=== PATIENT | male | born 1940 | race African-American/Black ===

== ENCOUNTER 2018-11-21 15:31 | Inpatient (IN) ==
[2018-11-21] MEDS ORDERED: FUROSEMIDE 40 MG/4 ML VIAL IV STA (16:23)
[2018-11-21 16:39] LABS: Basophils # 0.1 10*3/uL (0.0-0.2); Basophils % 0.9 % (0.0-0.8); Eosinophils % 0.5 % (0.00-10.9); Hematocrit 44.6 VOL% (42.0-52.0); Hemoglobin 14.9 GM/DL (14.0-18.0); Immature Granulocytes % 0.3 %; Immature Granulocytes Absolute 0.02 #; Lymphocytes # 1.2 10*3/uL (1.4-4.0); Lymphocytes % 16.3 % (21.2-54.2); Mean Corpuscular HGB Conc 33.4 GM/DL (32-36); Mean Corpuscular Hemoglobin 29 PG (27-34); Mean Corpuscular Volume 87.6 FL (87-102); Mean Platelet Volume 10.9 FL (9.6-12.0); Monocytes # 0.7 10*3/uL (0.11-0.8); Monocytes % 9.4 % (1.7-12.7); Neutrophils # 5.5 10*3/uL (1.4-7.4); Neutrophils % 72.6 % (38.7-73.9); Platelet Count 172 T/CUMM (130-400); Red Blood Count 5.09 MC/CUMM (3.8-5.5); White Blood Count 7.6 T/CUMM (4-12)
[2018-11-21 19:36] LABS: Albumin 3.9 G/DL (3.4-5.0); Bilirubin,Total 3.8 MG/DL (0.2-1.0); Osmolality,Calculated 279.3 MOS/KG (273-304); Potassium 3.5 MMOL/L (3.5-5.1); Total Protein 7.7 G/DL (6.4-8.3)
[2018-11-21] MEDS ORDERED: ACETAMINOPHEN 500 MG TABLET PO PRN (20:12)
[2018-11-21] MEDS ORDERED: ONDANSETRON 4 MG TABLET PO PRN (20:12)
[2018-11-21] MEDS: GABAPENTIN 300 MG CAPSULE PO SCH (21:48)
[2018-11-21] MEDS: TAMSULOSIN 0.4 MG CAPSULE PO SCH (21:48)
[2018-11-21] MEDS: amLODIPine 5 MG TABLET PO SCH (21:48)
[2018-11-21] MEDS: POTASSIUM CHLORIDE 20 MEQ TABLET PO SCH (21:48)
[2018-11-21] MEDS ORDERED: ONDANSETRON 4 MG/2 ML VIAL IV PRN (22:12)
[2018-11-21] MEDS ORDERED: ZALEPLON 5 MG CAPSULE PO PRN (22:12)
[2018-11-21] MEDS: METOPROLOL SUCCINATE XL 25 MG TABLET PO SCH (23:22)
[2018-11-21] MEDS: FUROSEMIDE 40 MG/4 ML VIAL IV SCH (23:22)
[2018-11-22] MEDS: POTASSIUM CHLORIDE 20 MEQ TABLET PO SCH ×3 (01:28→12:29)
[2018-11-22 05:42] LABS: Basophils # 0.1 10*3/uL (0.0-0.2); Basophils % 0.9 % (0.0-0.8); Eosinophils # 0.1 10*3/uL (0.0-0.87); Hematocrit 39.2 VOL% (42.0-52.0); Hemoglobin 13.3 GM/DL (14.0-18.0); Immature Granulocytes % 0.3 %; Immature Granulocytes Absolute 0.02 #; Lymphocytes # 1.6 10*3/uL (1.4-4.0); Lymphocytes % 20.6 % (21.2-54.2); Mean Corpuscular HGB Conc 33.9 GM/DL (32-36); Mean Corpuscular Hemoglobin 29 PG (27-34); Mean Platelet Volume 10.4 FL (9.6-12.0); Monocytes # 0.8 10*3/uL (0.11-0.8); Monocytes % 10.6 % (1.7-12.7); Neutrophils # 5.2 10*3/uL (1.4-7.4); Neutrophils % 66.6 % (38.7-73.9); Platelet Count 173 T/CUMM (130-400); Red Blood Count 4.56 MC/CUMM (3.8-5.5); Red Cell Distribution Width 18.9 % (9.3-17.3); White Blood Count 7.9 T/CUMM (4-12)
[2018-11-22 05:58] LABS: Calcium 8.6 MG/DL (8.5-10.1); Osmolality,Calculated 279.4 MOS/KG (273-304); Potassium 3.6 MMOL/L (3.5-5.1)
[2018-11-22] MEDS: FUROSEMIDE 40 MG/4 ML VIAL IV SCH ×2 (08:23→15:15)
[2018-11-22] MEDS: GABAPENTIN 300 MG CAPSULE PO SCH ×3 (08:24→20:40)
[2018-11-22] MEDS: PANTOPRAZOLE 40 MG TABLET PO SCH (08:24)
[2018-11-22] MEDS: FINASTERIDE 5 MG TABLET PO SCH (08:24)
[2018-11-22] MEDS: ENOXAPARIN 40 MG/0.4 ML SYRINGE SUBCUT SCH (08:24)
[2018-11-22] MEDS: CETIRIZINE 10 MG TABLET PO SCH (08:24)
[2018-11-22] MEDS: CHOLECALCIFEROL 1,000 UNIT TABLET PO SCH (08:24)
[2018-11-22] MEDS: METOPROLOL SUCCINATE XL 25 MG TABLET PO SCH ×2 (08:24→20:40)
[2018-11-22] MEDS: LISINOPRIL 20 MG TABLET PO SCH (08:24)
[2018-11-22] MEDS: ASPIRIN EC 81 MG TABLET PO SCH (08:24)
[2018-11-22 12:02] LABS: Troponin I 0.147 NG/ML (0.00-0.045)
[2018-11-22 15:59] LABS: Apearance,Urine CLEAR (Clear); Bilirubin,Urine Negative (Negative); Blood, Urine Negative (Negative); Glucose,Urine (UA) Negative (Negative); Hyaline Casts,Urine 3 /LPF (0-3); Ketones,Urine Negative (Negative); Mucus,Urine Occasional /LPF (Occasional); Nitrite,Urine Negative (Negative); Protein,Urine Negative; RBC,Urine 1 /HPF (0-4); Urine Color Yellow (Yellow); Urine Specific Gravity 1.012 (1.001-1.035); WBC,Urine <1 /HPF (0-6)
[2018-11-22] MEDS: TAMSULOSIN 0.4 MG CAPSULE PO SCH (20:40)
[2018-11-22] MEDS: amLODIPine 5 MG TABLET PO SCH (20:40)
[2018-11-23 05:17] LABS: Risk Ratio 4.46; VLDL CHOLESTEROL 14.6 MG/DL
[2018-11-23 05:27] LABS: Troponin I 0.123 NG/ML (0.00-0.045)
[2018-11-23] MEDS: FUROSEMIDE 40 MG/4 ML VIAL IV SCH (08:31)
[2018-11-23] MEDS: ASPIRIN EC 81 MG TABLET PO SCH (08:32)
[2018-11-23] MEDS: FINASTERIDE 5 MG TABLET PO SCH (08:32)
[2018-11-23] MEDS: METOPROLOL SUCCINATE XL 25 MG TABLET PO SCH ×2 (08:32→20:45)
[2018-11-23] MEDS: CHOLECALCIFEROL 1,000 UNIT TABLET PO SCH (08:32)
[2018-11-23] MEDS: CETIRIZINE 10 MG TABLET PO SCH (08:32)
[2018-11-23] MEDS: ENOXAPARIN 40 MG/0.4 ML SYRINGE SUBCUT SCH (08:32)
[2018-11-23] MEDS: PANTOPRAZOLE 40 MG TABLET PO SCH (08:32)
[2018-11-23] MEDS: GABAPENTIN 300 MG CAPSULE PO SCH ×3 (08:32→20:45)
[2018-11-23] MEDS: LISINOPRIL 20 MG TABLET PO SCH (08:32)
[2018-11-23] MEDS: POTASSIUM CHLORIDE 20 MEQ TABLET PO SCH (11:37)
[2018-11-23] MEDS: FUROSEMIDE 40 MG TABLET PO SCH (15:23)
[2018-11-23] MEDS: TAMSULOSIN 0.4 MG CAPSULE PO SCH (20:45)
[2018-11-23] MEDS: amLODIPine 5 MG TABLET PO SCH (20:45)
[2018-11-24 05:07] LABS: Basophils # 0.1 10*3/uL (0.0-0.2); Basophils % 1.3 % (0.0-0.8); Eosinophils # 0.1 10*3/uL (0.0-0.87); Eosinophils % 1.6 % (0.00-10.9); Hematocrit 38.7 VOL% (42.0-52.0); Hemoglobin 12.8 GM/DL (14.0-18.0); Immature Granulocytes % 0.3 %; Immature Granulocytes Absolute 0.02 #; Lymphocytes # 1.5 10*3/uL (1.4-4.0); Lymphocytes % 23.8 % (21.2-54.2); Mean Corpuscular HGB Conc 33.1 GM/DL (32-36); Mean Corpuscular Hemoglobin 29 PG (27-34); Mean Corpuscular Volume 88.4 FL (87-102); Mean Platelet Volume 9.7 FL (9.6-12.0); Monocytes # 0.7 10*3/uL (0.11-0.8); Monocytes % 11.6 % (1.7-12.7); Neutrophils # 3.8 10*3/uL (1.4-7.4); Neutrophils % 61.4 % (38.7-73.9); Platelet Count 167 T/CUMM (130-400); Red Blood Count 4.38 MC/CUMM (3.8-5.5); Red Cell Distribution Width 18.9 % (9.3-17.3); White Blood Count 6.2 T/CUMM (4-12)
[2018-11-24 05:21] LABS: Albumin 3.1 G/DL (3.4-5.0); Bilirubin,Total 2.2 MG/DL (0.2-1.0); Calcium 8.3 MG/DL (8.5-10.1); Osmolality,Calculated 281.3 MOS/KG (273-304); Potassium 3.6 MMOL/L (3.5-5.1); Total Protein 6.4 G/DL (6.4-8.3)
[2018-11-24 07:25] VITALS: BP 99/69
[2018-11-24] MEDS: LISINOPRIL 20 MG TABLET PO SCH (09:56)
[2018-11-24] MEDS: CETIRIZINE 10 MG TABLET PO SCH (09:56)
[2018-11-24] MEDS: FINASTERIDE 5 MG TABLET PO SCH (09:56)
[2018-11-24] MEDS: ASPIRIN EC 81 MG TABLET PO SCH (09:56)
[2018-11-24] MEDS: PANTOPRAZOLE 40 MG TABLET PO SCH (09:56)
[2018-11-24] MEDS: GABAPENTIN 300 MG CAPSULE PO SCH (09:56)
[2018-11-24] MEDS: FUROSEMIDE 40 MG TABLET PO SCH (09:56)
[2018-11-24] MEDS: CHOLECALCIFEROL 1,000 UNIT TABLET PO SCH (09:56)
[2018-11-24] MEDS: ENOXAPARIN 40 MG/0.4 ML SYRINGE SUBCUT SCH (09:56)
[2018-11-24] MEDS: METOPROLOL SUCCINATE XL 25 MG TABLET PO SCH (09:56)
== END 2018-11-24 11:18 | disposition home or self-care (01) | DRG 292 ==
LOC: N.ED 15:31 → N.EDINP 20:15 → SUATTDRO 20:15 → N.3E 21:22
PROVIDERS: ADMIT Internal Medicine; ATTEND Hospitalist

== ENCOUNTER 2018-12-26 11:59 | Observation (INO) ==
[2018-12-26] MEDS ORDERED: FAMOTIDINE 20 MG/2 ML VIAL IV STA (12:40)
[2018-12-26 13:28] LABS: Albumin 3.8 G/DL (3.4-5.0); Bilirubin,Total 4.4 MG/DL (0.2-1.0); Calcium 9.1 MG/DL (8.5-10.1); Osmolality,Calculated 279.4 MOS/KG (273-304); Potassium 4.5 MMOL/L (3.5-5.1); Total Protein 7.2 G/DL (6.4-8.3)
[2018-12-26] MEDS ORDERED: FUROSEMIDE 40 MG/4 ML VIAL IV STA (15:00)
[2018-12-26 16:08] LABS: Apearance,Urine CLEAR (Clear); Bacteria,Urine Occasional /HPF (Few); Bilirubin,Urine Negative (Negative); Blood, Urine Negative (Negative); Glucose,Urine (UA) Negative (Negative); Hyaline Casts,Urine 22 /LPF (0-3); Ketones,Urine Negative (Negative); Mucus,Urine Moderate /LPF (Occasional); Nitrite,Urine Negative (Negative); Protein,Urine 100 MG/DL; RBC,Urine 1 /HPF (0-4); Urine Color Amber (Yellow); Urine Specific Gravity 1.018 (1.001-1.035); WBC,Urine 2 /HPF (0-6)
[2018-12-26 16:19] LABS: Basophils # 0.1 10*3/uL (0.0-0.2); Basophils % 1.1 % (0.0-0.8); Eosinophils # 0.1 10*3/uL (0.0-0.87); Eosinophils % 0.8 % (0.00-10.9); Hematocrit 43.8 VOL% (42.0-52.0); Hemoglobin 14.5 GM/DL (14.0-18.0); Immature Granulocytes % 0.3 %; Immature Granulocytes Absolute 0.02 #; Lymphocytes # 1.6 10*3/uL (1.4-4.0); Lymphocytes % 23.9 % (21.2-54.2); Mean Corpuscular HGB Conc 33.1 GM/DL (32-36); Mean Corpuscular Hemoglobin 30 PG (27-34); Mean Corpuscular Volume 89.9 FL (87-102); Mean Platelet Volume 9.8 FL (9.6-12.0); Monocytes # 0.6 10*3/uL (0.11-0.8); Monocytes % 8.5 % (1.7-12.7); Neutrophils # 4.3 10*3/uL (1.4-7.4); Neutrophils % 65.4 % (38.7-73.9); Platelet Count 142 T/CUMM (130-400); Red Blood Count 4.87 MC/CUMM (3.8-5.5); Red Cell Distribution Width 18.6 % (9.3-17.3); White Blood Count 6.6 T/CUMM (4-12)
[2018-12-26] MEDS ORDERED: ACETAMINOPHEN 325 MG TABLET PO PRN (16:27)
[2018-12-26] MEDS ORDERED: ONDANSETRON 4 MG/2 ML VIAL IV PRN (16:27)
[2018-12-26] MEDS ORDERED: ENOXAPARIN 40 MG/0.4 ML SYRINGE SUBCUT SCH (16:30)
[2018-12-26] MEDS: GABAPENTIN 300 MG CAPSULE PO SCH (20:41)
[2018-12-26] MEDS: METOPROLOL SUCCINATE XL 50 MG TABLET PO SCH (20:41)
[2018-12-26] MEDS ORDERED: amLODIPine 5 MG TABLET PO SCH (21:00)
[2018-12-26] MEDS ORDERED: TAMSULOSIN 0.4 MG CAPSULE PO SCH (21:00)
[2018-12-27 04:52] LABS: INR 1.6; PT Patient Result 17.8 SECS
[2018-12-27 05:22] LABS: Albumin 3.2 G/DL (3.4-5.0); Bilirubin,Total 3.8 MG/DL (0.2-1.0); Calcium 8.8 MG/DL (8.5-10.1); Osmolality,Calculated 278.5 MOS/KG (273-304); Potassium 3.9 MMOL/L (3.5-5.1); Total Protein 6.7 G/DL (6.4-8.3)
[2018-12-27] MEDS ORDERED: CETIRIZINE 10 MG TABLET PO SCH (09:00)
[2018-12-27] MEDS ORDERED: ASPIRIN EC 81 MG TABLET PO SCH (09:00)
[2018-12-27] MEDS ORDERED: FINASTERIDE 5 MG TABLET PO SCH (09:00)
[2018-12-27] MEDS ORDERED: LISINOPRIL 20 MG TABLET PO SCH (09:00)
[2018-12-27] MEDS: FUROSEMIDE 40 MG TABLET PO SCH ×2 (10:00→15:53)
[2018-12-27] MEDS: METOPROLOL SUCCINATE XL 50 MG TABLET PO SCH (10:00)
[2018-12-27] MEDS: GABAPENTIN 300 MG CAPSULE PO SCH ×2 (10:00→15:53)
[2018-12-27 11:57] LABS: Lymphocytes,Pleural Fluid 75 %; Monocytes,Pleural Fluid 4 %; Neutrophils,Pleural Fluid 21 %
[2018-12-27] MEDS ORDERED: POTASSIUM CHLORIDE 20 MEQ TABLET PO SCH (12:00)
[2018-12-27 12:04] LABS: RBC,Pleural Fluid 13905 T/CUMM
[2018-12-27 12:17] LABS: Total Protein,Pleural Fluid 1.5 G/DL
[2018-12-27 15:54] VITALS: BP 101/71
== END 2018-12-27 17:26 | disposition home or self-care (01) ==
LOC: N.ED 11:59 → INTOOBSV 16:27 → N.EDINP 16:31 → N.2E 16:57
PROVIDERS: ADMIT Internal Medicine Geriatric Medicine; ATTEND Internal Medicine Geriatric Medicine
PROC: IRTHORA (2018-12-27 10:40)

== ENCOUNTER 2018-12-31 18:10 | Inpatient (IN) ==
[2018-12-31] MEDS ORDERED: FUROSEMIDE 100 MG/10 ML VIAL IV STA (18:34)
[2018-12-31 21:04] LABS: Basophils % 0.5 % (0.0-0.8); Eosinophils % 0.1 % (0.00-10.9); Hematocrit 44.9 VOL% (42.0-52.0); Hemoglobin 15.4 GM/DL (14.0-18.0); Immature Granulocytes % 0.3 %; Immature Granulocytes Absolute 0.02 #; Lymphocytes # 1.1 10*3/uL (1.4-4.0); Lymphocytes % 14.4 % (21.2-54.2); Mean Corpuscular HGB Conc 34.3 GM/DL (32-36); Mean Corpuscular Hemoglobin 30 PG (27-34); Mean Corpuscular Volume 87.5 FL (87-102); Monocytes # 0.6 10*3/uL (0.11-0.8); Neutrophils # 6.1 10*3/uL (1.4-7.4); Neutrophils % 77.7 % (38.7-73.9); Platelet Count 163 T/CUMM (130-400); Red Blood Count 5.13 MC/CUMM (3.8-5.5); Red Cell Distribution Width 18.8 % (9.3-17.3); White Blood Count 7.9 T/CUMM (4-12)
[2018-12-31 21:12] LABS: VBG Base Excess -4.4 MEQ/L (0-4); VBG HCO3 20.4 MEQ/L (24-28); VBG Oxygen Saturation 81.6 %; VBG PCO2 32.5 MMHG (41-51); VBG PH 7.386; VBG PO2 49.8 MMHG (17-40)
[2018-12-31 21:27] LABS: Albumin 3.9 G/DL (3.4-5.0); Bilirubin,Total 4.7 MG/DL (0.2-1.0); Calcium 9.2 MG/DL (8.5-10.1); Osmolality,Calculated 277.5 MOS/KG (273-304); Potassium 4.6 MMOL/L (3.5-5.1); Total Protein 7.3 G/DL (6.4-8.3)
[2018-12-31] MEDS ORDERED: MAGNESIUM SULF RIDER 4 GM in PREMIX 1 EACH IV PRN (22:09)
[2018-12-31] MEDS ORDERED: MAGNESIUM SULF RIDER 2 GM in PREMIX 1 EACH IV PRN (22:09)
[2018-12-31] MEDS ORDERED: ONDANSETRON 4 MG/2 ML VIAL IV PRN (22:09)
[2018-12-31] MEDS ORDERED: ACETAMINOPHEN 325 MG TABLET PO PRN (22:09)
[2018-12-31 23:36] LABS: Apearance,Urine CLEAR (Clear); Bilirubin,Urine Negative (Negative); Blood, Urine Negative (Negative); Glucose,Urine (UA) Negative (Negative); Hyaline Casts,Urine 4 /LPF (0-3); Ketones,Urine Negative (Negative); Mucus,Urine Occasional /LPF (Occasional); Nitrite,Urine Negative (Negative); Protein,Urine Negative; RBC,Urine 1 /HPF (0-4); Urine Color Yellow (Yellow); Urine Specific Gravity 1.008 (1.001-1.035); WBC,Urine <1 /HPF (0-6)
[2019-01-01 07:39] LABS: Albumin 3.4 G/DL (3.4-5.0); Bilirubin,Total 5.3 MG/DL (0.2-1.0); Calcium 8.8 MG/DL (8.5-10.1); Osmolality,Calculated 285.1 MOS/KG (273-304); Total Protein 7.2 G/DL (6.4-8.3)
[2019-01-01] MEDS: PANTOPRAZOLE 40 MG TABLET PO SCH (08:40)
[2019-01-01] MEDS: FUROSEMIDE 40 MG/4 ML VIAL IV SCH ×2 (08:40→16:46)
[2019-01-01] MEDS: ASPIRIN EC 81 MG TABLET PO SCH (08:40)
[2019-01-01] MEDS: MELOXICAM 7.5 MG TABLET PO SCH (08:40)
[2019-01-01] MEDS: LISINOPRIL 20 MG TABLET PO SCH (08:40)
[2019-01-01] MEDS: FINASTERIDE 5 MG TABLET PO SCH (08:40)
[2019-01-01] MEDS: CETIRIZINE 10 MG TABLET PO SCH (08:40)
[2019-01-01] MEDS: CHOLECALCIFEROL 1,000 UNIT TABLET PO SCH (08:40)
[2019-01-01] MEDS: METOPROLOL SUCCINATE XL 50 MG TABLET PO SCH ×2 (08:53→20:49)
[2019-01-01] MEDS: GABAPENTIN 300 MG CAPSULE PO SCH ×3 (08:53→20:49)
[2019-01-01] MEDS: POTASSIUM CHLORIDE 20 MEQ TABLET PO SCH (12:14)
[2019-01-01] MEDS: amLODIPine 10 MG TABLET PO SCH (20:49)
[2019-01-01] MEDS: TAMSULOSIN 0.4 MG CAPSULE PO SCH (20:49)
[2019-01-02 06:04] LABS: Basophils % 0.5 % (0.0-0.8); Eosinophils # 0.1 10*3/uL (0.0-0.87); Eosinophils % 0.6 % (0.00-10.9); Hematocrit 41.9 VOL% (42.0-52.0); Hemoglobin 14.1 GM/DL (14.0-18.0); Immature Granulocytes % 0.4 %; Immature Granulocytes Absolute 0.03 #; Lymphocytes # 1.4 10*3/uL (1.4-4.0); Lymphocytes % 17.4 % (21.2-54.2); Mean Corpuscular HGB Conc 33.7 GM/DL (32-36); Mean Corpuscular Hemoglobin 30 PG (27-34); Mean Corpuscular Volume 88.8 FL (87-102); Mean Platelet Volume 10.9 FL (9.6-12.0); Monocytes # 0.6 10*3/uL (0.11-0.8); Monocytes % 7.9 % (1.7-12.7); Neutrophils # 5.8 10*3/uL (1.4-7.4); Neutrophils % 73.2 % (38.7-73.9); Platelet Count 146 T/CUMM (130-400); Red Blood Count 4.72 MC/CUMM (3.8-5.5); Red Cell Distribution Width 18.2 % (9.3-17.3)
[2019-01-02 06:32] LABS: Albumin 3.2 G/DL (3.4-5.0); Bilirubin,Total 2.9 MG/DL (0.2-1.0); Calcium 8.2 MG/DL (8.5-10.1); Osmolality,Calculated 279.8 MOS/KG (273-304); Potassium 4.8 MMOL/L (3.5-5.1); Total Protein 6.3 G/DL (6.4-8.3)
[2019-01-02] MEDS: FINASTERIDE 5 MG TABLET PO SCH (08:29)
[2019-01-02] MEDS: FUROSEMIDE 40 MG/4 ML VIAL IV SCH (08:29)
[2019-01-02] MEDS: CHOLECALCIFEROL 1,000 UNIT TABLET PO SCH (08:29)
[2019-01-02] MEDS: MELOXICAM 7.5 MG TABLET PO SCH (08:30)
[2019-01-02] MEDS: CETIRIZINE 10 MG TABLET PO SCH (08:30)
[2019-01-02] MEDS: ASPIRIN EC 81 MG TABLET PO SCH (08:30)
[2019-01-02] MEDS: METOPROLOL SUCCINATE XL 50 MG TABLET PO SCH ×2 (08:30→21:46)
[2019-01-02] MEDS: LISINOPRIL 20 MG TABLET PO SCH (08:30)
[2019-01-02] MEDS: PANTOPRAZOLE 40 MG TABLET PO SCH (08:30)
[2019-01-02] MEDS: GABAPENTIN 300 MG CAPSULE PO SCH ×3 (08:30→21:45)
[2019-01-02] MEDS: POTASSIUM CHLORIDE 20 MEQ TABLET PO SCH (12:30)
[2019-01-02] MEDS ORDERED: TUBERCULIN SKIN TEST 0.1 ML SYRINGE INTRADERM ONE (16:52)
[2019-01-02 17:27] LABS: Hepatitis A Ab IgM Quant 0.19 Index; Hepatitis A Ab IgM Result Negative (Negative); Hepatitis B Core IgM Quant 0.13 Index; Hepatitis B Core IgM Result Negative (Negative); Hepatitis B Surface Ag Quant < 0.10 Index; Hepatitis B Surface Ag Result Negative (Negative); Hepatitis C Virus Ab Quant 0.03 Index; Hepatitis C Virus Ab Result Negative (Negative)
[2019-01-02] MEDS: TAMSULOSIN 0.4 MG CAPSULE PO SCH (21:45)
[2019-01-02] MEDS: amLODIPine 10 MG TABLET PO SCH (21:46)
[2019-01-03] MEDS ORDERED: LACTATED RINGERS 1,000 ML IV SCH (08:00)
[2019-01-03] MEDS: ASPIRIN EC 81 MG TABLET PO SCH (08:38)
[2019-01-03] MEDS: MELOXICAM 7.5 MG TABLET PO SCH (08:38)
[2019-01-03] MEDS: LISINOPRIL 20 MG TABLET PO SCH (08:38)
[2019-01-03] MEDS: GABAPENTIN 300 MG CAPSULE PO SCH ×2 (08:38→14:47)
[2019-01-03] MEDS: FINASTERIDE 5 MG TABLET PO SCH (08:39)
[2019-01-03] MEDS: PANTOPRAZOLE 40 MG TABLET PO SCH (08:39)
[2019-01-03] MEDS: METOPROLOL SUCCINATE XL 50 MG TABLET PO SCH (08:39)
[2019-01-03] MEDS: CETIRIZINE 10 MG TABLET PO SCH (08:39)
[2019-01-03] MEDS: CHOLECALCIFEROL 1,000 UNIT TABLET PO SCH (08:39)
[2019-01-03] MEDS ORDERED: PROPOFOL 200 MG/20 ML VIAL IV ONE (09:00)
[2019-01-03] MEDS ORDERED: LIDOCAINE 2% 5 ML VIAL ONE (09:00)
[2019-01-03] MEDS: POTASSIUM CHLORIDE 20 MEQ TABLET PO SCH (12:31)
[2019-01-03 12:54] VITALS: BP 117/81
[2019-01-03] MEDS ORDERED: PANTOPRAZOLE 40 MG TABLET PO SCH (21:00)
== END 2019-01-03 17:45 | disposition home or self-care (01) | DRG 291 ==
LOC: N.ED 18:10 → N.EDINP 22:09 → N.5E 01-01 02:20
PROVIDERS: ADMIT Internal Medicine; ATTEND Internal Medicine